=== PATIENT | male | born 1975 | race African-American/Black ===

== ENCOUNTER 2019-03-02 20:25 | Emergency (ER) | payer MEDICAID ==
[~2019-03-02] VITALS: Ht 177.8 cm; Wt 136.1 kg
--- NOTE | 2019-03-02 20:40 | NUR ---
ED Nurse Note: PT FROM HOME C/O LEFT GROIN BOIL X2DAYS WITH FEVER 100.5 AND CHILLS IN THE ED. PT STATES HX OF BOIL ON THE GROIN BUT WORST TODAY.
[2019-03-02 20:45] VITALS: BP 159/92
[2019-03-02] MEDS ORDERED: Lidocaine 1% 10mg/ml/EPI 0.01mg/ml 30ml INJ ONE (21:15)
[2019-03-02] MEDS ORDERED: HYDROcodone/Acetamin 5/325 tab ORAL ONE (21:45)
[2019-03-02] MEDS ORDERED: Azithromycin 250mg tab ORAL ONE (21:45)
[2019-03-02] MEDS ORDERED: Doxycycline Monohydrate 100mg ORAL ONE (21:45)
[2019-03-02] MEDS ORDERED: NORCO 5-325 TA1 EACH ORAL (21:59)
[2019-03-02] MEDS ORDERED: CLEOCIN HCL300 MG PO (21:59)
[2019-03-02] MEDS ORDERED: IBUPROFEN600 MG ORAL (21:59)
[2019-03-02] MEDS ORDERED: BACTRIM DS TAB1 EAC1 ORAL (21:59)
[2019-03-02 22:10] VITALS: BP 142/86
--- NOTE | 2019-03-02 22:10 | NUR ---
ER DISCHARGE NOTE: Patient is cleared to be discharged per ERMD, pt is aox4, on room air, with stable vital signs. pt was given dc and prescription instructions, pt was able to verbalize understanding, pt id band removed without complications. Performed dry dressing per ermd order. pt is able to ambulate with steady gait. pt took all belongings.
--- NOTE | 2019-03-03 23:04 | Emergency Room Report ---
History of Present Illness General Chief Complaint: Skin Rash/Abscess Source: Patient Present Illness Allergies: Coded Allergies: PENICILLINS (Verified Allergy, Unknown, 03/02/19) Patient History Reviewed Nursing Documentation: PMH: Agreed; PSxH: Agreed Nursing Documentation-PMH Hx Hypertension: Yes Hx Asthma: Yes Physical Exam Vital Signs Date Time Temp Pulse Resp B/P (MAP) Pulse Ox O2 Delivery O2 Flow Rate FiO2 03/02/19 20:33 100.0 100 18 159/92 (114) 96 Room Air Medical Decision Making Diagnostic Impression: Primary Impression: Abscess of skin Last Vital Signs Date Time Temp Pulse Resp B/P (MAP) Pulse Ox O2 Delivery O2 Flow Rate FiO2 03/02/19 22:10 100.3 72 16 142/86 97 Room Air Disposition: HOME, SELF-CARE Condition: Stable Scripts Ibuprofen* (MOTRIN*) 600 Mg Tablet 600 MG ORAL Q6H PRN for For Pain, #20 TAB 0 Refills Prov: Patrice Quinteros MD 03/02/19 Hydrocodone Bit/Acetaminophen 5-325* (NORCO 5-325*) 1 Each Tablet 1 TAB ORAL Q6H PRN for For Pain, #10 TAB 0 Refills Prov: Patrice Quinteros MD 03/02/19 Trimethoprim/Sulfamethoxazole 160/800* (BACTRIM DS TABLET*) 1 Each Tablet 1 TAB ORAL Q12H, #14 TAB 0 Refills Prov: Patrice Quinteros MD 03/02/19 Clindamycin Hcl (CLEOCIN HCL) 300 Mg Capsule 300 MG PO THREE TIMES A DAY, #21 CAP Prov: Patrice Quinteros MD 03/02/19 Referrals: [facility],REFERRING (PCP) Patient Instructions: Abscess Additional Instructions: Wound check with your doctor in 1-2 days. Return if any problems. Patrice Quinteros MD Mar 03, 2019 23:04
== END 2019-03-02 22:10 | disposition home or self-care (01) ==
LOC: EMR 20:55
DX: L02.91 Cutaneous abscess, unspecified (principal); I10 Essential (primary) hypertension; Z88.0 Allergy status to penicillin
CPT/HCPCS: 82962; Q0144; Z7502; 99283